=== PATIENT | female | born 1970 | race American Indian/Alaskan Native ===

== ENCOUNTER 2020-10-20 17:02 | Emergency (ER) | payer BC ==
--- NOTE | 2020-10-20 18:09 | Emergency Department Report ---
ED Syncope HPI - General Chief Complaint: Dizziness Stated Complaint: CHEST PAIN / FAINTING Time Seen by Provider: 10/20/20 18:06 Source: patient Exam Limitations: no limitations - History of Present Illness Initial Comments: 50-year-old female, no past medical history, presents to the ED following a syncopal episode earlier this morning. Patient was at the [facility] sitting in a chair when she began to feel lightheaded and ended up having a syncopal episode. Patient reports brief LOC. Denies any head injury. Patient states EMS came to check her and reported that her vitals were normal. Patient did not get transported at that time. Patient states while driving home she began to feel slight shortness of breath and slightly faint again, so she decided to come to the ER. She currently denies any headache, chest pain, shortness of breath, lightheadedness or dizziness, leg pain or swelling. Patient reports she did some toast prior to her appointment this morning. Patient reports that she has had multiple near syncopal episodes in the past months, but has never been worked up for any of them. Patient reports she has been fully vaccinated against COVID-19. Timing/Prior Episodes: remote history Precipitating Factors: Positive: lightheadedness Context: sitting Loss of Consciousness: brief (seconds) Current Symptoms: back to normal. denies: blurred vision, chest pain, dizziness, headache - Related Data Allergies/Adverse Reactions: Allergies No Known Allergies Allergy (Unverified 10/20/20 17:35) Home Medications: Ambulatory Orders Azithromycin [Zithromax TAB] 250 mg PO QDAY #4 tablet 10/20/20 ED Review of Systems ROS: Stated complaint: CHEST PAIN / FAINTING Other details as noted in HPI Comment: All other systems reviewed and negative Constitutional: denies: chills, fever Respiratory: shortness of breath. denies: cough Cardiovascular: chest pain. denies: palpitations Gastrointestinal: denies: abdominal pain, nausea, vomiting, diarrhea Musculoskeletal: other (Denies leg pain or swelling) Neurological: denies: headache ED Past Medical Hx - Past Medical History Previous Medical History?: No - Surgical History Past Surgical History?: No - Social History Smoking Status: Never Smoker Substance Use Type: Alcohol - Medications Home Medications: Home Medications Medication Instructions Recorded Confirmed Last Taken Type Azithromycin [Zithromax TAB] 250 mg PO QDAY #4 tablet 10/20/20 Unknown Rx ED Physical Exam - General Limitations: No Limitations General appearance: alert, in no apparent distress - Head Head exam: Present: atraumatic, normocephalic - Eye Eye exam: Present: normal appearance, PERRL, EOMI - ENT ENT exam: Present: mucous membranes moist - Neck Neck exam: Present: normal inspection - Respiratory Respiratory exam: Present: normal lung sounds bilaterally. Absent: respiratory distress - Cardiovascular Cardiovascular Exam: Present: regular rate, normal rhythm - GI/Abdominal GI/Abdominal exam: Present: soft. Absent: distended, tenderness - Extremities Exam Extremities exam: Present: normal inspection - Neurological Exam Neurological exam: Present: alert, oriented X3, CN II-XII intact. Absent: motor sensory deficit - Psychiatric Psychiatric exam: Present: normal affect, normal mood - Skin Skin exam: Present: warm, dry, intact, normal color ED Course Vital Signs 10/20/20 10/20/20 10/20/20 17:24 17:58 18:00 Temperature 97.9 F Pulse Rate 79 78 73 Respiratory 20 18 16 Rate Blood Pressure 107/82 Blood Pressure [Right] O2 Sat by Pulse 100 99 100 Oximetry 10/20/20 10/20/20 10/20/20 18:06 18:16 18:30 Temperature Pulse Rate 77 75 74 Respiratory 17 16 18 Rate Blood Pressure 133/79 131/79 Blood Pressure 137/84 [Right] O2 Sat by Pulse 100 100 Oximetry 10/20/20 19:34 Temperature Pulse Rate 76 Respiratory 17 Rate Blood Pressure 126/74 Blood Pressure [Right] O2 Sat by Pulse 100 Oximetry ED Medical Decision Making - Lab Data Result diagrams: 10/20/20 18:57 10/20/20 18:09 - EKG Data -: EKG Interpreted by [place] EKG shows normal: sinus rhythm, axis, intervals, QRS complexes, ST-T waves Rate: normal - EKG Data Interpretation: no acute changes - Radiology Data Radiology results: report reviewed, image reviewed - Medical Decision Making 50-year-old female presents to ED following syncopal episode earlier today. EKG is normal. Vital signs are stable. D-dimer elevated, so CTA chest was obtained. CTA negative for PE, however, it does show multifocal pneumonia. Patient given Rocephin and azithromycin here in the ED. Patient reports she has received her COVID-19 vaccine, however I have instructed patient to obtain outpatient COVID-19 testing. O2 sats are normal, she is in no respiratory distress. Patient will be discharged with antibiotics. Outpatient follow-up advised, return precautions given. - Differential Diagnosis Dehydration, arrhythmia, PE Critical care attestation.: If time is entered above; I have spent that time in minutes in the direct care of this critically ill patient, excluding procedure time. ED Disposition Clinical Impression: Syncope, Pneumonia Disposition: DC- TO HOME OR SELFCARE Is pt being admited?: No Condition: Stable Instructions: Syncope, [id number], Community-Acquired Pneumonia, Adult, [id number], Syncope (ED), Bacterial Pneumonia (ED) Additional Instructions: It is advised that you obtain outpatient COVID-19 testing. Please quarantine as necessary. Prescriptions: Azithromycin [Zithromax TAB] 250 mg PO QDAY #4 tablet Referrals: BUSHRA PINZON MD [Staff Physician] - 3-5 Days [facility] [Provider Group] - 3-5 Days Forms: Work/School Release Form(ED) Time of Disposition: 20:36
[2020-10-20] MEDS ORDERED: SODIUM CHLORIDE 0.9% 1000 ML 1,000 ML ONE (18:19)
[2020-10-20] MEDS ORDERED: SODIUM CHLORIDE 0.9% 1000 ML 1,000 ML IV ONE (18:24)
[2020-10-20 18:48] LABS: Blood Urea Nitrogen 13 mg/dL (7-17); Calcium 9.9 mg/dL (8.4-10.2); Hemolysis Index 20
[2020-10-20 18:49] LABS: BUN/Creatinine Ratio 22
[2020-10-20 19:07] LABS: Partial Thromboplastin Time 21.6 Sec. (24.2-36.6)
[2020-10-20 19:21] LABS: Eosinophils % (Auto) 0.7 % (0.0-4.3); Hematocrit 34.1 % (30.3-42.9); Hemoglobin 11.3 gm/dl (10.1-14.3); Lymphocytes # (Auto) 1.2 K/mm3 (1.2-5.4); Lymphocytes % (Auto) 22.8 % (13.4-35.0); Mean Corpuscular HGB Conc 33 % (30-34); Mean Corpuscular Volume 87 fl (79-97); Monocytes # (Auto) 0.6 K/mm3 (0.0-0.8); Monocytes % (Auto) 10.8 % (0.0-7.3); Platelet Count 248 K/mm3 (140-440); Red Blood Count 3.92 M/mm3 (3.65-5.03); Red Cell Distribution Width 13.8 % (13.2-15.2)
[2020-10-20 19:35] VITALS: BP 126/74
--- NOTE | 2020-10-20 19:35 | XRay Report ---
CHEST 1 VIEW 10/20/2020 7:28 PM INDICATION / CLINICAL INFORMATION: syncope. COMPARISON: None available. FINDINGS: SUPPORT DEVICES: None. HEART / MEDIASTINUM: No significant abnormality. LUNGS / PLEURA: No significant pulmonary or pleural abnormality. No pneumothorax. ADDITIONAL FINDINGS: No significant additional findings. IMPRESSION: 1. No acute findings. Signer Name: Jani Riley MD Signed: 10/20/2020 7:31 PM Workstation Name: [id number]
--- NOTE | 2020-10-20 20:21 | Cat Scan Report ---
CTA CHEST WITH IV CONTRAST INDICATION: syncope, elevate d-dimer. TECHNIQUE: Axial CT images were obtained through the chest after injection of 100 cc Omnipaque 350 IV contrast. 3 plane MIP reconstructions were produced. All CT scans at this location are performed using CT dose reduction for ALARA by means of automated exposure control. COMPARISON: None available. FINDINGS: Pulmonary Arteries: No pulmonary emboli. Lungs: There are patchy foci of groundglass opacity in both lungs. Trachea and Bronchi: No significant abnormality. Heart and Pericardium: No significant abnormality. Vasculature: No significant abnormality. Lymphatics: No lymphadenopathy. Additional Findings: None. Upper Abdomen: No acute findings. Skeletal Structures: No acute findings or aggressive bone lesions. IMPRESSION: 1. No CT evidence for pulmonary embolism. 2. Patchy foci of groundglass opacity in both lungs likely reflecting multifocal pneumonia. Signer Name: Jani Riley MD Signed: 10/20/2020 8:17 PM Workstation Name: [id number]
[2020-10-20] MEDS ORDERED: cefTRIAXone/NS 1 GM/50 ML 1 GM/50 ML BAG IV ONE (20:35)
[2020-10-20] MEDS ORDERED: AZITHROMYCIN 250 MG TAB PO ONE (20:35)
--- NOTE | 2020-10-23 09:11 | Electrocardiograph Report ---
[facility] Test Date: 2020-10-20 Test Time: 17:27:33 Pat Name: PAMELA EVANS Department: Room: Gender: F Washer Blanket: ROSSI Lyle RN : 1970 Requested By: CHARLES SALDANA Order Number: [id number] Reading MD: Parish Cooper Measurements Intervals [place] Rate: 62 P: 53 [place]: 162 QRS: 12 QRSD: 85 T: 10 QT: 424 QTc: 432 Interpretive Statements Sinus rhythm No previous ECG available for comparison Electronically Signed On 10-23-2020 9:11:21 EDT by Parish Cooper
== END 2020-10-20 21:57 | disposition home or self-care (01) ==
LOC: ED 17:02
DX: R55 Syncope and collapse (principal); J18.9 Pneumonia, unspecified organism; Z79.2 Long term (current) use of antibiotics
CPT/HCPCS: 36415; 71045; 71275; 80048; 84703; 85025; 85379; 85610; 85730; 93005; 96360; 99284; J7030; Q9967